=== PATIENT | female | born 1950 | race American Indian/Alaskan Native ===

== ENCOUNTER 2017-06-17 10:12 | Day surgery (SDC) | payer MEDICARE ==
[2016-05-28 20:51] VITALS: BMI 42.3
[2017-06-17] MEDS ORDERED: Lactated Ringer's 1,000 ML IV ONE (10:52)
[2017-06-17] MEDS ORDERED: Midazolam 2 MG/2 ML VIAL ONE (11:18)
[2017-06-17] MEDS ORDERED: Propofol 10 mg/ml Inj (20 ML) ONE (11:18)
[2017-06-17 12:28] VITALS: BP 142/71; PULSE 77; RESP 14; TEMP 98.2; O2SAT 100
== END 2017-06-17 12:29 | disposition home or self-care (01) ==
LOC: H.ENDO 10:12
PROVIDERS: ATTEND Internal Medicine Gastroenterology
DX: Z12.11 Encounter for screening for malignant neoplasm of colon (principal); Z86.73 Personal history of transient ischemic attack (TIA), and cerebral infarction without residual deficits; E11.9 Type 2 diabetes mellitus without complications; E78.5 Hyperlipidemia, unspecified; I10 Essential (primary) hypertension; K21.9 Gastro-esophageal reflux disease without esophagitis; K57.30 Diverticulosis of large intestine without perforation or abscess without bleeding; K44.9 Diaphragmatic hernia without obstruction or gangrene; K21.0 Gastro-esophageal reflux disease with esophagitis; K29.70 Gastritis, unspecified, without bleeding; D50.9 Iron deficiency anemia, unspecified
CPT/HCPCS: 43235; 88305; G0121; J2250; J2704; J7120